=== PATIENT | female | born 1935 | race Caucasian/White ===

== ENCOUNTER 2018-05-24 12:04 | Emergency (ER) | payer OTHER, BC ==
[2018-05-24 12:20] VITALS: BP 140/71; PULSE 68; TEMP 98.6; BMI 30.2
--- NOTE | 2018-05-24 12:26 | PDOC ---
History of Present Illness - General Chief Complaint: Injury Stated Complaint: FELL Time Seen by Provider: 05/24/18 12:23 History Source: Patient Exam Limitations: No Limitations - History of Present Illness Initial Comments: 05/24/18 12:36 Patient tripped and fell yesterday sustaining? Inversion type injury to left ankle. Used ice and [place] wrap but has persistent pain. Severity: reports: moderate Pain Location: reports: lower extremity (left ankle ) Method of Injury: Yes: unknown, fall Modifying Factors: improves with: cold therapy, immobilization Associated Symptoms (Fall): denies symptoms Past History - Travel Traveled outside of the country in the last 30 days: No Close contact w/someone who was outside of country & ill: No - Past Medical History Allergies/Adverse Reactions: Allergies Allergy/AdvReac Type Severity Reaction Status Date / Time No Known Allergies Allergy Verified 05/24/18 12:44 Home Medications: Ambulatory Orders Aspirin 81 mg PO DAILY 01/08/14 Atorvastatin Ca [Lipitor -] 10 mg PO HS 01/08/14 Carvedilol 12.5 mg PO BID 01/08/14 Glyburide 0 mg PO BID 01/08/14 Losartan Potassium [Cozaar -] 50 mg PO DAILY 01/08/14 metFORMIN HCL [Glucophage -] 0 mg PO DAILY 01/08/14 Anemia: No Asthma: No Cancer: No Cardiac Disorders: Yes (CHEST PAIN,quadruple bypass 1997) CVA: No COPD: No CHF: No DVT: No Dementia: No Diabetes: Yes GI Disorders: No Disorders: No HTN: Yes Hypercholesterolemia: Yes Liver Disease: No Seizures: No Thyroid Disease: No - Surgical History Abdominal Surgery: No Appendectomy: No Cardiac Surgery: Yes (QUAD BYPASS/1997) Cholecystectomy: No Lung Surgery: No Neurologic Surgery: No Orthopedic Surgery: No - Suicide/Smoking/Psychosocial Hx Smoking History: Never smoked Have you smoked in the past 12 months: No Hx Alcohol Use: No Drug/Substance Use Hx: No Substance Use Type: None Hx Substance Use Treatment: No Review of Systems - Review of Systems Able to Perform ROS?: Yes Is the patient limited Japanese proficient: Yes Constitutional: Yes: See HPI. No: Symptoms Reported HEENTM: No: Symptoms Reported Musculoskeletal: Yes: Symptoms Reported, See HPI, Joint Swelling (left ankle ), Joint Stiffness Integumentary: Yes: See HPI, Bruising All Other Systems: Reviewed and Negative *Physical Exam - Vital Signs Last Vital Signs Temp Pulse Resp BP Pulse Ox 98.6 F 68 18 140/71 99 05/24/18 12:15 05/24/18 12:15 05/24/18 12:15 05/24/18 12:15 05/24/18 12:15 - Physical Exam General Appearance: Yes: Nourished, Appropriately Dressed, Apparent Distress, Mild Distress HEENT: positive: KRISTAN, Normal ENT Inspection, TMs Normal, Pharynx Normal Neck: positive: Supple. negative: Tender Musculoskeletal: negative: Normal Inspection Extremity: positive: Normal Capillary Refill, Swelling (with point tenderness to the lateral malleolus, swelling and mild ecchymosis.Faint squeeze test positive,). negative: Normal Inspection, Normal Range of Motion Integumentary: positive: Normal Color, Swelling, Bruising Neurologic: positive: x ray tech II-XII NML intact, Fully Oriented, Alert, Normal Mood/ Affect, Normal Response, Motor Strength 5/5 Progress Note - Progress Note Progress Note: Sprained left ankle x-ray negative for fractures or dislocations. [place], air cast provided. Patient has a cane at home. Will follow-up with orthopedist week *DC/Admit/Observation/Transfer Diagnosis at time of Disposition: Left ankle sprain Qualifiers: Encounter type: initial encounter Involved ligament of ankle: unspecified ligament Qualified Code(s): S93.402A - Sprain of unspecified ligament of left ankle, initial encounter - Discharge Dispostion Disposition: HOME Condition at time of disposition: Stable Decision to Admit order: No - Referrals Referrals: Brigette Sotomayor MD [Primary Care Provider] - Rakan Tay MD [Staff Physician] - - Patient Instructions Printed Discharge Instructions: DI for Ankle Sprain Additional Instructions: Rest, ice to area on and off for 15 minutes 4-6 times a day Avoid heavy lifting or exercise until pain and swelling is resolved or until further directed Keep area highly elevated to reduce swelling Use splints/[place] wrap as directed Followup with orthopedist in one to 2 days if not improving, if significantly improved may wait one week for followup with orthopedist May use Tylenol 23 25 mg tablets every 4-6 hours as needed for pain - Post Discharge Activity
[2018-05-24] MEDS ORDERED: ACETAMINOPHEN 325 MG TABLET (FP) PO ONE (12:53)
[2018-05-24] MEDS ORDERED: ACETAMINOPHEN 325 MG TABLET (FP) ONE (12:55)
== END 2018-05-24 12:57 | disposition home or self-care (01) ==
LOC: JERFT 12:04
PROC: 2W3RX1Z Immobilization of Left Lower Leg using Splint (ICD-10-PCS; principal; 2018-05-24)
DX: S93.402A Sprain of unspecified ligament of left ankle, initial encounter (principal); W01.0XXA Fall on same level from slipping, tripping and stumbling without subsequent striking against object, initial encounter; Y93.89 Activity, other specified; Y92.89 Other specified places as the place of occurrence of the external cause; Y99.8 Other external cause status; I25.10 Atherosclerotic heart disease of native coronary artery without angina pectoris; I10 Essential (primary) hypertension; Z95.1 Presence of aortocoronary bypass graft; E78.00 Pure hypercholesterolemia, unspecified
CPT/HCPCS: 29515; 73610-TC-LT-FY; 99281-25

== ENCOUNTER 2020-04-16 09:27 | Emergency (ER) | payer OTHER, BC ==
[2020-04-16 09:33] VITALS: BMI 28.3
--- NOTE | 2020-04-16 09:33 | PDOC ---
Rapid Medical Evaluation Time Seen by Provider: 04/16/20 09:29 Medical Evaluation: Allergies Allergy/AdvReac Type Severity Reaction Status Date / Time No Known Allergies Allergy Verified 05/24/18 12:44 04/16/20 09:29 I performed a brief in-person evaluation of this patient. Pt is an 84 y/o female who presents to the ED after a slip and fall down a few steps yesterday. She denies hitting her head on any LOC. The steps were wood. She hit her back and is now complaining of left sided mid back pain. She took Tylenol for the pain yesterday without any relief. She denies any hip pain. H/o DM, HTN, pacemaker, CABG x 4. Pertinent physical exam findings: Significant tenderness to palpation to the right proximal lumbar spine, no midline tenderness I have ordered the following: thoracolumbar spine xr, tylenol Patient to proceed to ED for further evaluation Discharge Disposition - Diagnosis Back pain - Referrals - Patient Instructions - Post Discharge Activity
[2020-04-16] MEDS ORDERED: ACETAMINOPHEN 325 MG TABLET (FP) PO ONE (09:34)
--- NOTE | 2020-04-16 10:17 | PDOC ---
History of Present Illness - General Chief Complaint: Injury Stated Complaint: FALL Time Seen by Provider: 04/16/20 09:29 - History of Present Illness Initial Comments: 04/16/20 11:46 rib pain Past History - Medical History Allergies/Adverse Reactions: Allergies Allergy/AdvReac Type Severity Reaction Status Date / Time No Known Allergies Allergy Verified 04/16/20 09:33 Home Medications: Ambulatory Orders Aspirin 81 mg PO DAILY 01/08/14 Atorvastatin Ca [Lipitor -] 10 mg PO HS 01/08/14 Carvedilol 12.5 mg PO BID 01/08/14 Losartan Potassium [Cozaar -] 50 mg PO DAILY 01/08/14 Insulin (LOG) Aspart [NovoLOG -] 0 units SQ TID 04/16/20 Insulin Glargine,Hum.rec.anlog [Lantus] 24 unit SQ ASDIR 04/16/20 Anemia: No Asthma: No Cancer: No Cardiac Disorders: Yes (CHEST PAIN,quadruple bypass 1997) CVA: No COPD: No CHF: No DVT: No Dementia: No Diabetes: Yes GI Disorders: No Disorders: No HTN: Yes Hypercholesterolemia: Yes Liver Disease: No Seizures: No Thyroid Disease: No - Surgical History Abdominal Surgery: No Appendectomy: No Cardiac Surgery: Yes (QUAD BYPASS/1997, PACEMAKER) Cholecystectomy: No Lung Surgery: No Neurologic Surgery: No Orthopedic Surgery: No - Psycho-Social/Smoking History Smoking History: Never smoked Have you smoked in the past 12 months: No - Substance Abuse Hx (Audit-C & DAST Scrn) How often the patient has a drink containing alcohol: Never Score: In Men: 4 or > Positive; In Women: 3 or > Positive: 0 Screen Result (Pos requires Nsg. Audit-10AR): Negative *Physical Exam - Vital Signs Last Vital Signs Temp Pulse Resp BP Pulse Ox 98.7 F 71 18 125/65 97 04/16/20 09:31 04/16/20 09:31 04/16/20 09:31 04/16/20 09:31 04/16/20 09:31 Discharge - Discharge Information Problems reviewed: Yes Clinical Impression/Diagnosis: Back pain Qualifiers: Back pain location: thoracic back pain Chronicity: acute Back pain laterality: left Qualified Code(s): M54.6 - Pain in thoracic spine Condition: Stable Disposition: HOME - Admission No - Follow up/Referral Referrals: Brigette Sotomayor MD [Primary Care Provider] - - Patient Discharge Instructions Patient Printed Discharge Instructions: DI for Low Back Pain Additional Instructions: You were seen in the ER for back pain after a fall. There were no rib fractures on CT scan. Please control your pain with acetaminophen as needed. Follow up with your primary care provider as soon as possible, in the next 2-3 days. - Post Discharge Activity
--- NOTE | 2020-04-16 10:55 | PDOC ---
Documentation entered by Melania Magaña SCRIBE, acting as scribe for Rakan Hopson MD. Rakan Hopson MD: This documentation has been prepared by the Archana roy Nirvannie, SCRIBE, under my direction and personally reviewed by me in its entirety. I confirm that the documentation accurately reflects all work, treatment, procedures, and medical decision making performed by me. Attending Attestation - Resident Resident Name: Wyatt Spencer - ED Attending Attestation I have performed the following: I have examined & evaluated the patient, The case was reviewed & discussed with the resident, I agree w/resident's findings & plan, Exceptions are as noted - HPI HPI: 04/16/20 10:50 The patient is an 84 year old female with a significant past medical history of HTN, s/p CABG (x4), s/p pacemaker, DM, HLD who presents to the ED s/p fall with left-sided rib pain. As per patient, she was walking down the stairs yesterday and she slipped down a few wooden steps. Pt fell onto her back. Now complains of L sided ribcage pain. Took Tylenol yesterday, without relief, prompting her arrival to the ED. She denies any head/neck trauma or LOC. Allergies: NKDA Primary Care Physician: Dr. Sotomayor - Physicial Exam PE: 04/16/20 11:05 See resident exam - Medical Decision Making 04/16/20 11:05 84 F with rib pain after mechanical fall. No syncopal event. - CTs CTs unremarkable Pt is well appearing, with normal vitals. Clinically stable for DC at this time. I discussed the physical exam findings, ancillary test results and final diagnoses with the patient. I answered all of the patient's questions. The patient was satisfied with the care received and felt comfortable with the discharge plan and treatment plan. The patient agrees to follow up with the primary care physician within 24-72 hours. Please note this patient was evaluated during the COVID-19 crisis with the presidential [place] Act Declaration and the [place] governor executive order number 202. He/she was evaluated and clinical decisions were made relative to healthcare system resources as well as clinical picture during a pandemic crisis situation. Discharge - Discharge Information Problems reviewed: Yes Clinical Impression/Diagnosis: Back pain, Fall, Rib pain Condition: Stable Disposition: HOME - Follow up/Referral Referrals: Brigette Sotomayor MD [Primary Care Provider] - - Patient Discharge Instructions Patient Printed Discharge Instructions: DI for Low Back Pain Additional Instructions: You were seen in the ER for back pain after a fall. There were no rib fractures on CT scan. Please control your pain with acetaminophen as needed. Follow up with your primary care provider as soon as possible, in the next 2-3 days. - Post Discharge Activity
[2020-04-16] MEDS ORDERED: KETOROLAC TROMETHAMINE 30 MG/1 ML VIAL IM ONE (11:27)
[2020-04-16] MEDS ORDERED: KETOROLAC TROMETHAMINE 30 MG/1 ML VIAL ONE (12:28)
[2020-04-16 12:44] VITALS: BP 110/68; PULSE 72; TEMP 98.6
== END 2020-04-16 12:44 | disposition home or self-care (01) ==
LOC: JER 09:27
PROC: 3E0233Z Introduction of Anti-inflammatory into Muscle, Percutaneous Approach (ICD-10-PCS; principal; 2020-04-16)
DX: M54.6 Pain in thoracic spine (principal)
CPT/HCPCS: 70450-TC; 71250-TC; 72125-TC; 99285-25

== ENCOUNTER 2024-04-01 03:13 | Inpatient (IN) | payer OTHER, BC ==
[2024-04-01 03:19] VITALS: BMI 23.0
[2024-04-01] MEDS ORDERED: ACETAMINOPHEN INJECTION 100 ML IVPB ONE (03:42)
[2024-04-01] MEDS: ACETAMINOPHEN 1000 MG/100 ML BAG IVPB ONE (04:13)
[2024-04-01 04:41] LABS: BASO % 0.3 % (0-2.0); EOS % 0.4 % (0-4.5); HEMATOCRIT 37.2 % (32.4-45.2); HEMOGLOBIN 12.5 GM/dL (10.7-15.3); LYMPH % 10.3 % (8-40); MCHC 33.6 g/dl (32.0-36.0); MEAN CELL VOLUME 119.2 fl (80-96); MEAN PLT VOLUME 8.5 fl (7.5-11.1); MONO % 4.4 % (3.8-10.2); NEUT % 84.6 % (42.8-82.8); PLATELET COUNT 289 10^3/uL (134-434); RBC 3.12 M/mm3 (3.60-5.2); RDW 16.3 % (11.6-15.6); WHITE BLOOD COUNT 8.4 K/mm3 (4.0-10.0)
[2024-04-01 04:50] LABS: INR 1.01 (0.83-1.09); PROTHROMBIN TIME (PATIENT) 11.4 SEC (9.7-13.0)
[2024-04-01 04:53] LABS: ACTIVATED PTT 31.8 SECONDS (25.2-36.5)
[2024-04-01 05:30] LABS: CHLORIDE 104 mmol/L (98-107); SODIUM 135 mmol/L (136-145)
[2024-04-01 05:32] LABS: ALBUMIN 3.4 g/dl (3.4-5.0); BLOOD UREA NITROGEN 17.5 mg/dL (7-18); CALCIUM 8.9 mg/dL (8.5-10.1); CO2 28 mmol/L (21-32)
[2024-04-01 05:35] LABS: CREATININE 0.8 mg/dL (0.55-1.3); SGOT/AST 85 U/L (15-37)
[2024-04-01 05:37] LABS: BILIRUBIN,TOTAL 0.5 mg/dL (0.2-1)
[2024-04-01 05:38] LABS: ALK PHOS 79 U/L (45-117)
[2024-04-01 06:20] LABS: ANION GAP 4 mmol/L (4-13); GLUCOSE,RANDOM 203 mg/dL (74-106); POTASSIUM 6.7 mmol/L (3.5-5.1); SGPT/ALT 23 U/L (13-61)
[2024-04-01] MEDS ORDERED: ASPIRIN 325 MG TABLET ONE (06:32)
[2024-04-01] MEDS ORDERED: ASPIRIN 81 MG CHEWABLE TABLETS ONE ×2 (06:42)
[2024-04-01] MEDS: ASPIRIN 81 MG CHEWABLE TABLETS PO ONE (06:46)
[2024-04-01 07:08] LABS: POTASSIUM 3.9 mmol/L (3.5-5.1)
[2024-04-01 07:09] LABS: BLOOD UREA NITROGEN 15.2 mg/dL (7-18); CALCIUM 8.3 mg/dL (8.5-10.1)
[2024-04-01 07:13] LABS: CREATININE 0.6 mg/dL (0.55-1.3)
[2024-04-01 08:24] LABS: ANISOCYTOSIS 2+; MACROCYTOSIS 2+
[2024-04-01] MEDS ORDERED: CEFTRIAXONE 1 GM/50 ML BAG ONE (11:09)
[2024-04-01] MEDS ORDERED: AZITHROMYCIN IVPB 500 MG/250 ML BAG IVPB ONE (11:10)
[2024-04-01] MEDS: AZITHROMYCIN IVPB 500 MG in DEXTROSE 5%-WATER - 250 ML IVPB ONE (11:13)
[2024-04-01] MEDS ORDERED: ATORVASTATIN CA 40 MG TABLET (FP) ONE (11:37)
[2024-04-01] MEDS ORDERED: CARVEDILOL 6.25 MG TABLET (FP) ONE (11:37)
[2024-04-01] MEDS: CARVEDILOL 12.5 MG TABLET (FP) PO ONE (11:38)
[2024-04-01] MEDS: ATORVASTATIN CA 80 MG TABLET (FP) PO SCH (11:39)
[2024-04-01] MEDS: ATORVASTATIN CA 80 MG TABLET (FP) PO ONE (11:39)
[2024-04-01] MEDS ORDERED: ATORVASTATIN CA 40 MG TABLET (FP) PO ONE (11:53)
[2024-04-01 12:56] LABS: N-TERMINAL BNP 4275.8 pg/ml (5-450)
[2024-04-01] MEDS: CLOPIDOGREL BISULFATE 75 MG TABLET (FP) PO ONE (14:31)
[2024-04-01] MEDS ORDERED: CLOPIDOGREL BISULFATE 75 MG TABLET (FP) ONE (14:32)
[2024-04-01] MEDS: ENOXAPARIN NA (PORCINE) 40 MG/0.4 ML DISP.SYRIN SQ SCH (14:32)
[2024-04-01] MEDS ORDERED: ENOXAPARIN NA (PORCINE) 40 MG/0.4 ML DISP.SYRIN SQ ONE (14:33)
[2024-04-01] MEDS ORDERED: ACETAMINOPHEN 325 MG TABLET (FP) PO PRN (14:44)
[2024-04-01 18:09] VITALS: BP 134/64; PULSE 80; RESP 18; TEMP 98.3
[2024-04-01] MEDS ORDERED: INSULIN (LEVEMIR) 100 UNITS/ML UNITS SQ SCH (22:00)
[2024-04-01] MEDS ORDERED: LIDOCAINE PATCH REMOVAL MC SCH (22:00)
[2024-04-01] MEDS ORDERED: CARVEDILOL 12.5 MG TABLET (FP) PO SCH ×2 (22:00)
[2024-04-02] MEDS ORDERED: CLOPIDOGREL BISULFATE 75 MG TABLET (FP) PO SCH (10:00)
[2024-04-02] MEDS ORDERED: CEFTRIAXONE 1 GM in DEXTROSE 5%-WATER - 50 ML IVPB SCH (10:00)
[2024-04-02] MEDS ORDERED: LIDOCAINE 5% TOPICAL PATCH TP SCH (10:00)
[2024-04-02] MEDS ORDERED: LOSARTAN POTASSIUM 50 MG TABLET PO SCH (10:00)
[2024-04-02] MEDS ORDERED: ASPIRIN COATED 81 MG TABLET.EC PO SCH (10:00)
[2024-04-02] MEDS ORDERED: AZITHROMYCIN IVPB 500 MG in DEXTROSE 5%-WATER - 250 ML IVPB SCH (10:00)
[2024-04-02] MEDS ORDERED: ATORVASTATIN CA 40 MG TABLET (FP) PO SCH (22:00)
== END 2024-04-01 18:32 | disposition short-term general hospital (02) | DRG 280 ==
LOC: JER 03:13 → JERBED 10:59 → J4W 14:52
PROVIDERS: ADMIT Internal Medicine; ATTEND Internal Medicine
DX: I11.0 Hypertensive heart disease with heart failure (principal); I21.4 Non-ST elevation (NSTEMI) myocardial infarction; J96.01 Acute respiratory failure with hypoxia; I50.21 Acute systolic (congestive) heart failure; I24.89 Other forms of acute ischemic heart disease; E11.9 Type 2 diabetes mellitus without complications; E78.5 Hyperlipidemia, unspecified; I25.10 Atherosclerotic heart disease of native coronary artery without angina pectoris; R91.1 Solitary pulmonary nodule; Z95.1 Presence of aortocoronary bypass graft
CPT/HCPCS: 36415; 70450-TC; 71045-TC-FY; 71275-TC; 72125-TC; 72131-TC; 72170-TC-FY; 80048; 80053; 80061; 82962; 83036; 83880; 84443; 84484; 85025; 85610; 85730; 93005; 93010; 93306-TC; 99285-25; J0131; Q9967